=== PATIENT | male | born 1955 | race Caucasian/White ===

== ENCOUNTER 2016-12-24 12:50 | Observation (INO) ==
--- NOTE | 2016-12-24 13:26 | Emergency Department Note ---
IKb Brittany, am scribing for, and in the presence of, Jonathan Capps MD 13:20. Jefry Mukherjee Phillip K, MD, personally performed the services described in this documentation, ascribed by Nan Quiles in my presence, and it is both accurate and complete 326 . Arrival - Arrival Chief Complaint: Syncope Stated Complaint: Chest pain-transfer ED Nursing Triage Note: Brought in by EMS c/o syncopal episode x's 2-onset yesterday. Patient was transferred from [facility] for elevated troponin of 0.689. Denies CP or SOB. Mode of Arrival: Stretcher Limitations: No Limitations Source: Patient, Family Time Seen by Provider: 12/24/16 13:10 - History of Present Illness HPI Narrative: This is a 61 y/o white male,who presents to the ED by EMS with S/P syncopal episode which happened earlier today. He was transferred from [facility]'s ED. He states he was at home. Pt's states pt was sitting on the toilet when she heard him fall. Pt states he felt lightheaded. He did not have any CP, SOB, or nausea or vomiting. He states he then had one episode today. He reports he was outside when he bent forward to pick something up and started to get lightheaded again. He, again, denies any CP, SOB, or nausea or vomiting. Pt also complains of "indigestion" as well. Pt has no other complaints/pain in the ED at this time. Pt denies a PMHx. Pt denies a surgical Hx. Pt denies a family medical Hx. Pt denies a social Hx. Pt's Troponin level was 0.689 at [facility]. Patient's CPK was normal at [facility] but his MB was 9. Onset (ago): day(s) (Started yesterday) Consistency: constant Severity: moderate Allergies/Adverse Reactions: Allergies Allergy/AdvReac Type Severity Reaction Status Date / Time No Known Allergies Allergy Verified 12/24/16 12:55 Home Medications: Home Medications Medication Instructions Recorded Confirmed Type No Known Home Medications [No 12/24/16 12/24/16 History Known Home Medications] Review of System - Review of System 12 point system: reviewed and no additional remarkable complaints except as stated - Review of System Cardiovascular: Present: syncope (x 2). Absent: chest pain, dyspnea on exertion Gastrointestinal: Present: other ("Indigestion"). Absent: nausea, vomiting Neurological: Present: other (Lightheaded) Medical,Surgical,& Family Hx - Social History Smoking Status: Never smoker Frequency of Alcohol Use: None Type of Drug Use: None Exam Vital Signs: Vital Signs Temperature 98.0 F 12/24/16 13:56 Pulse Rate 61 12/24/16 13:56 Respiratory Rate 18 12/24/16 13:56 Blood Pressure 169/99 12/24/16 13:56 O2 Sat by Pulse Oximetry 100 12/24/16 13:20 - General General appearance: alert, in no apparent distress - Head Head exam: Present: atraumatic, normocephalic, normal inspection - Eye Eye exam: Present: normal appearance, PERRL, EOMI. Absent: nystagmus - ENT ENT exam: Present: normal exam, normal oropharynx, mucous membranes moist - Neck Neck exam: Present: normal inspection, full ROM, trachea midline. Absent: tenderness, meningismus, lymphadenopathy, thyromegaly - Chest Chest inspection: Present: normal inspection, symmetric chest wall rise. Absent : tenderness, rash, abscess - Respiratory Respiratory exam: Present: normal lung sounds bilaterally. Absent: prolonged expiratory phase, rales, respiratory distress, rhonchi, stridor, wheezes - Cardiovascular Cardiovascular exam: Present: regular rate, normal rhythm, normal heart sounds. Absent: murmur, rubs, gallop, clicks - Abdominal Exam Abdominal exam: Present: soft, normal bowel sounds. Absent: distention, tenderness, guarding, rebound, rigidity - Extremities Exam Extremities exam: Present: normal inspection, full ROM, normal capillary refill. Absent: tenderness, pedal edema, joint swelling, calf tenderness - Back Exam Back exam: Present: normal inspection, full ROM. Absent: tenderness, muscle spasm, rashes - Neurological Exam Neurological exam: Present: alert, oriented X3, CN II-XII intact. Absent: motor sensory deficit - Psychiatric Psychiatric exam: Present: normal affect, normal mood. Absent: depressed, agitated, anxious - Skin Skin exam: Present: warm, dry, intact, normal color. Absent: rash, cyanosis, diaphoresis, erythema, pallor, mottled Course Course Narrative: Patient discussed with Dr. pyle who will admit for further evaluation. Results - Labs Lab Results: I have reviewed the patients labs Labs: Laboratory Tests 12/24/16 13:17 Troponin I 0.517 H Disposition Clinical Impression: Syncope, Elevated troponin Case discussed with: patient, patient's family Disposition: Still a Patient Condition: Guarded
[2016-12-24] MEDS ORDERED: MAGNESIUM SULF RIDER 2 GM in PREMIX 1 EACH IV PRN (13:29)
[2016-12-24] MEDS ORDERED: MAGNESIUM SULF RIDER 4 GM in PREMIX 1 EACH IV PRN (13:29)
[2016-12-24] MEDS ORDERED: ENOXAPARIN 120 MG/0.8 ML SYRINGE SUBCUT STA (13:44)
[2016-12-24] MEDS ORDERED: ASPIRIN 325 MG TABLET PO STA (13:45)
[2016-12-24] MEDS ORDERED: ENOXAPARIN 120 MG/0.8 ML SYRINGE SUBCUT ONE (13:47)
[2016-12-24] MEDS ORDERED: ASPIRIN 325 MG TABLET ONE (13:47)
--- NOTE | 2016-12-24 13:50 | XRay Report ---
Portable chest Date: 12/24/2016 Clinical history: Shortness of breath Comparison: 12/24/2016 Technique: Portable AP sitting chest Findings: The heart is borderline in size with left ventricular prominence and uncoiling of the aorta. Minimal atelectasis at the lung bases. Unremarkable mediastinum with degenerative changes. Impression: Left ventricular prominence and uncoiling of the aorta which can be seen with hypertensive cardiovascular disease. Minimal atelectasis at the lung bases. PROCEDURE INTERPRETED AT [facility] DEPARTMENT OF RADIOLOGY Final Report Signed by: Dr. Ruby Colbert
--- NOTE | 2016-12-24 14:11 | Cardiology History & Physical ---
Assessment and Plan - Time spent with patient Time spent with patient: Greater than 30 minutes (1) Hyperlipidemia Status: Chronic Assessment and plan: SEE PLAN OF CARE LISTED BELOW Current Visit: Yes (2) Carotid bruit Status: Chronic Assessment and plan: SEE PLAN OF CARE LISTED BELOW Current Visit: Yes Qualifiers: Laterality: right Qualified Code(s): R09.89 - Other specified symptoms and signs involving the circulatory and respiratory systems (3) Sleep disorder Status: Chronic Assessment and plan: SEE PLAN OF CARE LISTED BELOW Current Visit: Yes (4) Elevated troponin Status: Acute Assessment and plan: SEE PLAN OF CARE LISTED BELOW Current Visit: Yes (5) Syncope Status: Acute Assessment and plan: SEE PLAN OF CARE LISTED BELOW Current Visit: Yes History of Present Illness Chief complaint: syncope, elevated trop History of present illness: Patient is being seen in the emergency department Mr. Aguero is a 61 year old male never followed by cardiology before. His factors include: Dyslipidemia, obesity, history of remote tobaccoism. Patient presented to the emergency department at [facility] today after going to [facility] and being told that there was no physician available for 5 days. He sought medical attention after expressing a second episode of syncope. Yesterday morning, while sitting on the toilet, he states he was trying to have a bowel movement yet he was not bearing down. He awoke on the floor next to his he was trying to wake him. She witnessed him on the floor. She states he never quit breathing, he had a good pulse and he did not have any seizure type activity. She estimates he was at approximately 2 minutes. When he was awakened, he was somewhat tired, to canal and then went to work and worked his usual routine throughout the day. His morning, as he was getting out of bed, he stood up and became dizzy and leaned up against his bedroom door. He states that when he awakened he was sitting on the floor. Again, he denies having any type of seizure activity or symptoms associated with seizures. He denies having chest pain, heaviness or tightness. He denies shortness of breath. He is usually very active taking several stairs throughout the day. When he went to the emergency department, he was found to have a troponin of 0.689 with an MB of 9. He underwent CT of his head which was found to be negative. His EKG was unremarkable. He was then instructed to be evaluated at [facility] where he is being seen at this time. I have discussed this patient's case with Dr. Jones. Our plan will include monitoring his cardiac biomarkers. After we receive the second result from the cardiac biomarkers, should they remain elevated or worsen, we will proceed with cardiac catheterization this afternoon. I will order an echocardiogram. Patient does have a right carotid bruit and I will order a carotid ultrasound. Certainly, his syncope could be related to an arrhythmia we will monitor his telemetry closely. At discharge, may consider event monitor. Fasting lipid profile in the morning. The patient did undergo colonoscopy approximately one week ago. His states that she feels as if her has not replenished his fluids as he should. Patient agrees that this is a possibility as well. I'll ask for orthostatic vital signs. I'll go ahead and start hydrating him with IV fluids. CT head reveals no significant abnormality. Labs included the following: Hemoglobin 15.1, hematocrit 44.5. Platelet count 238. Troponin 0.689, CK-MB 9.0, cpk - 216. Myoglobin 100. INR 0.96, magnesium 2.0. BMP has been ordered. ASSESSMENT/PLAN: 1. SYNCOPE - we will start searching for cardiac contributions. Telemetry, consider event monitor. CIEs pending. May be volume depleted. 2. ELEVATED TROPONIN - await second set of enzymes. If elevated, will proceed with heart catheterization this afternoon. NPO 3. HYPERLIPIDEMIA - FLP in the morning. 4. CAROTID BRUIT - right sided bruit. Carotid US 5. SUSPECT SLEEP DISORDER - patient considering referral for sleep study Home Medications Medication Instructions Recorded Confirmed Type No Known Home Medications [No 12/24/16 12/24/16 History Known Home Medications] Allergies Allergy/AdvReac Type Severity Reaction Status Date / Time No Known Allergies Allergy Verified 12/24/16 12:55 Review of systems: REVIEW OF SYSTEMS: - Constitutional Constitutional: Syncope 2 Absent: anorexia, fatigue, night sweats - EENT Eyes: Absent: blurry vision, loss of vision, diplopia Ears: Absent: decreased hearing, ear pain, ear discharge - Cardiovascular Cardiovascular: Denies chest pain with exertion, dyspnea on exertion, edema, palpitations. Absent: chest pain with deep breath, claudication, - Respiratory Respiratory: Denies WING, cough. Absent: wheezing, hemoptysis, change in phlegm color - Gastrointestinal Gastrointestinal: Denies constipation. Absent: abdominal pain, hematemesis, hematochezia, melena, change in bowel habits, nausea - Genitourinary Genitourinary: Absent: difficulty urinating, dysuria, urinary hesitancy, flank pain - Musculoskeletal Musculoskeletal: Present: back pain Absent: joint swelling, muscle cramps, muscle weakness - Neurological Neurological: Present: normal gait without frequent falls. Absent: dizziness, hemiparesis - Psychiatric Psychiatric: Absent: anxiety, depression, difficulty concentrating - Endocrine Endocrine: Absent: cold intolerance, heat intolerance, polyuria, polyphagia, polydipsia - Hematologic/Lymphatic Hematologic/Lymphatic: Present: easy bruising. Absent: easy bleeding, easy bruisability -Integumentary Integumentary: Absent: lesions, rashes, skin breakdown Medical,Surgical,& Family Hx - Medical History Cardio: No history of: CAD, Hypertension, GA Endocrine: History of: Dyslipidemia No history of: Diabetes Mellitus (IDDM) Respiratory: No history of: COPD Other: No history of: Cancer - Social History Smoking Status: Former smoker Have you smoked in the last 12 months: No Frequency of Alcohol Use: None Type of Drug Use: None Marital Status: Lives With:: Spouse Functional capacity: independent ambulation Cardiology Physical Exam - Constitutional Vitals: Vital Signs Temp Pulse Resp BP Pulse Ox 98.0 F 61 18 169/99 98 12/24/16 13:56 12/24/16 13:56 12/24/16 13:56 12/24/16 13:56 12/24/16 12:51 Intake and Output 12/23/16 12/24/16 12/24/16 23:59 07:59 15:59 Other: Weight 117.934 kg Patient Weight 12/24/16 23:59 Weight 117.934 kg Exam: General: Appears well with no apparent distress. Pleasant and cooperative. Appears comfortable. HEENT: PERRL, normocephalic, atraumatic. Mucous membranes moist. No jaundice noted. Conjunctiva moist and clear, sclerae anicteric Neck: No JVD/HJR, no thyromegaly or lymphadenopathy noted. Right carotid bruit noted. Cardiac: Regular rate and rhythm. No murmur rub or gallop. Lungs: Clear to auscultation without accessory muscle use to assist the respiratory pattern. Not requiring oxygen Abdomen: Soft, bowel sounds normoactive. Nontender and nondistended. No abdominal bruit or thrill noted. No masses noted. Musculoskeletal: No fluid collection. Decreased range of motion is noted. Extremities: No clubbing, cyanosis noted. No edema noted. Upper extremity pulses 2+. Lower extremity pulses 2+. Capillary refill less than 3 seconds. Skin: No unusual lesions or rashes. No skin breakdown appreciated. Neuro: Awake, alert and oriented 3. Moves all extremities well without hemiparesis or paralysis. No essential tremor is appreciated. Result/EKG - Labs Lab Results: I have reviewed the past 24 hour labs Labs: Laboratory Results - last 24 hr 12/24/16 12/24/16 13:17 13:17 Total Creatine Kinase 173 Troponin I 0.517 H - Diagnostic Findings Procedure: Chest x-ray: report reviewed by me, CT: pending - EKG EKG results: interpreted by me EKG shows: sinus rhythm
[2016-12-24 15:05] LABS: Albumin 4.1 G/DL (3.4-5.0); Bilirubin,Direct 0.2 MG/DL (0.0-0.20); Bilirubin,Indirect 0.7 MG/DL (0.0-1.0); Bilirubin,Total 0.9 MG/DL (0.2-1.0); Calcium 9.2 MG/DL (8.5-10.1); Free T4 (Free Thyroxine) 0.95 NG/DL (0.76-1.46); Magnesium 2.2 MG/DL (1.8-2.4); Osmolality,Calculated 284.1 MOS/KG (273-304); Potassium 4.5 MMOL/L (3.5-5.1); Thyroid Stimulating Hormone 1.82 uIU/ml (0.358-3.74); Total Protein 7.1 G/DL (6.4-8.3)
--- NOTE | 2016-12-24 15:28 | Ultrasound Report ---
Exam: US carotid duplex BI Date: 12/24/2016 2:11 PM Indication: Right carotid bruit, syncope Technique: Duplex scan of the bilateral carotid arteries using B-mode/grayscale imaging and Doppler spectral analysis and color flow. Findings: Right Flow velocities centimeters per second Common carotid artery: 56 Proximal ICA: 56 Distal ICA: 99 External carotid artery: 152 Vertebral artery: 51 with antegrade flow ICA/CCA ratio: 1.8 Measurements in millimeters Distal ICA: 4.7 Left: Flow velocities centimeters per second Common carotid artery: 85 Proximal ICA: 131 Distal ICA: 149 External carotid artery: 173 Vertebral artery: 64 with antegrade flow ICA/CCA ratio: 1.8 Measurements in millimeters Distal ICA: 5 Minimal atherosclerotic plaque which is primarily calcified is noted at the proximal internal carotid arteries bilaterally. There is also mild calcific plaque suggested at the proximal left external carotid artery. Mild stenosis in the range of 16-49% is suggested at both proximal internal carotid arteries. Mild-moderate luminal stenosis is suggested at the bilateral proximal external carotid arteries. Increased flow velocities at the left common carotid artery versus right common carotid artery may represent a degree of mild stenosis within the proximal right common carotid artery. Color flow is present in all visualized vessels with Doppler analysis. Impression: Mild atherosclerotic disease bilaterally with suggestion of mild stenosis at the proximal internal carotid arteries in the range of 16-49%. Today studies were performed utilizing indirect NASCET criteria The ultrasound images were stored and captured PROCEDURE INTERPRETED AT [facility] DEPARTMENT OF RADIOLOGY Final Report Signed by: Fidel Amaya
[2016-12-24 15:50] VITALS: BP 136/73
[2016-12-24] MEDS ORDERED: LORazepam 2 MG/1 ML VIAL ONE (16:22)
[2016-12-24] MEDS ORDERED: SODIUM CHLORIDE 0.45% 1,000 ML IV SCH (16:30)
[2016-12-24] MEDS ORDERED: DOBUTamine 500 MG/250 ML PREMIX IV ONE (16:32)
[2016-12-24] MEDS ORDERED: AMIODARONE 150 MG/3 ML VIAL ONE ×2 (16:56→16:57)
[2016-12-24] MEDS ORDERED: ETOMIDATE 20 MG/10 ML VIAL IV ONE (16:59)
[2016-12-24] MEDS ORDERED: SUCCINYLCHOLINE 200 MG/10 ML VIAL ONE (16:59)
[2016-12-24] MEDS ORDERED: AMIODARONE 450 MG/9 ML VIAL IV ONE (17:00)
--- NOTE | 2016-12-24 17:13 | EKG Report ---
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
[2016-12-24] MEDS ORDERED: HEPARIN/NACL 0.9% 2 UNITS/ML 500 ML IV ONE (17:24)
[2016-12-24 17:25] LABS: Basophils % 0.6 % (0.0-0.8); Eosinophils # 0.1 10*3/uL (0.0-0.87); Eosinophils % 1.1 % (0.00-10.9); Hematocrit 42.2 VOL% (42.0-52.0); Immature Granulocytes % 5.7 %; Immature Granulocytes Absolute 0.36 #; Lymphocytes # 4.6 10*3/uL (1.4-4.0); Lymphocytes % 72.4 % (21.2-54.2); Mean Corpuscular HGB Conc 30.8 GM/DL (32-36); Mean Corpuscular Hemoglobin 28 PG (27-34); Mean Corpuscular Volume 91.1 FL (87-102); Mean Platelet Volume 11.7 FL (9.6-12.0); Monocytes # 0.2 10*3/uL (0.11-0.8); Monocytes % 2.5 % (1.7-12.7); Neutrophils # 1.1 10*3/uL (1.4-7.4); Neutrophils % 17.7 % (38.7-73.9); Platelet Count 150 T/CUMM (130-400); Red Blood Count 4.63 MC/CUMM (3.8-5.5); Red Cell Distribution Width 13.2 % (9.3-17.3); White Blood Count 6.3 T/CUMM (4-12)
[2016-12-24] MEDS ORDERED: DOBUTamine 500 MG/250 ML PREMIX IV SCH (17:30)
[2016-12-24] MEDS ORDERED: AMIODARONE INJ 450 MG in DEXTROSE 5% 241 ML IV SCH ×2 (17:30→23:30)
[2016-12-24] MEDS ORDERED: DOPamine 800 MG/250 ML PREMIX IV SCH (17:30)
[2016-12-24 17:37] LABS: INR 1.2; PT Patient Result 12.7 SECS; Partial Thromboplastin Time 46.8 SECS (0-40)
[2016-12-24] MEDS ORDERED: DEXTROSE 50% 25 GM/50 ML VIAL IV ONE (17:40)
--- NOTE | 2016-12-24 17:40 | XRay Report ---
Exam: XR chest 1V portable Indication: ET tube placement, respiratory failure Comparison study: 12/24/2016 at 1:27 PM Findings: Endotracheal tube tip terminates 3 cm from the jarvis. There has been development of diffuse opacity throughout both lungs suggestive of pulmonary edema or rapidly developing infectious/inflammatory infiltrates. There is no pneumothorax. Cardiac silhouette in a sterile contours appear within normal limits. There is no acute osseous abnormality. Impression: Endotracheal tube tip in position. Development of diffuse opacities throughout both lungs may represent pulmonary edema changes or infectious/inflammatory infiltrates. PROCEDURE INTERPRETED AT [facility] DEPARTMENT OF RADIOLOGY Final Report Signed by: Fidel Amaya
[2016-12-24 17:47] LABS: Albumin 2.4 G/DL (3.4-5.0); Bilirubin,Total 0.5 MG/DL (0.2-1.0); Calcium 7.4 MG/DL (8.5-10.1); Osmolality,Calculated 298.7 MOS/KG (273-304); Total Protein 4.7 G/DL (6.4-8.3)
[2016-12-24 17:51] LABS: Troponin I Only 0.611 NG/ML (0.00-0.045)
--- NOTE | 2016-12-24 18:12 | Event Note ---
PROCEDURE NOTE: Right femoral central line placement. Indication: Emergent CV access The right groin was prepped and draped per sterile technique and anesthetized with lidocaine. The femoral artery pulse was palpated, and the finder needle was advanced into the femoral vein with dark nonpulsatile blood return. The guidewire was advanced through the finder needle into the femoral vein. A small skin incision was made, the needle was removed, and the dilator was applied over the wire. The dilator was removed and the arrow triple-lumen catheter was advanced easily over the wire. Each port aspirated and flushed with normal saline. The central line was sutured into place. Complications: none EBL: minimal CODE BLUE note: I was present in the patient's ICU room for the patient's second occurrence of loss of pulse. His first CODE BLUE occurred on telemetry. ACLS was started. He received multiple rounds of epinephrine, sodium bicarbonate, D50, calcium gluconate. Despite our maximum efforts he never regained a pulse and was pronounced at 17:[address] Jones, the attending physician was notified and has spoken to the family.
[2016-12-24 18:36] LABS: Atypical Lymphocytes 1+; Band Neutrophils 2 % (0-10); Lymphocytes 69 % (20-55); Ovalocytes Slight; Platelet Estimate Adequate; Poikilocytosis Slight; Segmented Neutrophils 26 % (50-85); Smudge Cells 1+; Total Cells Counted 100
--- NOTE | 2016-12-24 23:27 | Event Note ---
. Carotid bruits were negative. Will decide the next based on how she responds therap
--- NOTE | 2016-12-24 23:31 | Discharge Summary ---
Hospital Course - Hospital Course Hospital Course: + The patient was admitted with multiple syncopal episodes. He coded. Sees the ACL and minimal /He underwent ACLS for at least 50 minutes. He coded moved to ICU. He was intubated before being done. prognis if ex;ater The patient coded suddenly. [facility] ACLS protocol. His coded about 40-50 minutes. He had PDA. He was intubated but the drug felt. His mood GN. He was given some support, however 67 did . Branch Service Representative: Dr. Jones 70-year-old woman she has a history of paroxysmal A. fibrulation his been difficult to control. She is now on amiodarone. She has lately been having chest pain. It starts her lower chest/epigastrium and radiates to her upper chest. Nothing brings it on. Nothing makes it better. It is a pressure. It is associated with some shortness breath but no nausea or diaphoresis. It can last several minutes. Discharge Plan - Discharge Data Disposition: Disch To Home/Self Care Condition at Discharge: Stable Discharge Diet: heart healthy Activity: resume usual activities as tolerated Hygiene: no restrictions Weight Bearing at Discharge: full weight bearing - Discharge Medications No Action No Known Home Medications [No Known Home Medications] - Follow Up or Referral - Forms/Instructions Exam - Constitutional Vitals: Period Temp Pulse Resp BP Sys/Fink Pulse Ox Last 24 Hr 98.0 F-98.5 F 60-70 18-22 136-169/73-99 96-98 Exam: lorena makes it better. It is a pressure. It is associated with some shortness breath but no nausea or diaphoresis. It can last several minutes. No orthopnea, PND, edema, palpitations, syncope, cough wheezing or phlegm. No bleeding the bowels, urine, or coughing up blood. No plans for surgery in the next year. No contraindication to anticoagulation for a year. 12/23/16--plan/recommendation: The patient is having less muscle ache or achiness. The diarrhea slightly better. Blood pressure is good. Continue therapy. Possibly swing bed tomorrow 12/24/16--plan/recommendation: The patient is having less muscle ache or achiness. The diarrhea slightly better. Blood pressure is good. Continue therapy. swing bed today The patient arrived. He was [facility]. He coded. It is about 40 minutes. He stabilized his mid ICU. He coded again and then . with 2 syncopal episodes yesterday and 2 today. He is admitted. His troponins were flat. It is admitted. Carotid bruits were negative. Will decide the next based on how she responds therap Discharge Results Procedures and tests throughout hospitalization: Pending Orders 12/24/16 17:25 MRSA Surveillence, Inf Control Routine Labs on day of discharge: Labs from last 24 hours 12/24/16 12/24/16 12/24/16 17:12 17:12 17:12 WBC 6.3 RBC 4.63 Hgb 13.0 L Hct 42.2 MCV 91.1 MCH 28 MCHC 30.8 L RDW 13.2 Plt Count 150 MPV 11.7 Neut % (Auto) 17.7 L Lymph % (Auto) 72.4 H [place] % (Auto) 2.5 Eos % (Auto) 1.1 Baso % (Auto) 0.6 Neut # (Auto) 1.1 L Lymph # (Auto) 4.6 H [place] # (Auto) 0.2 Eos # (Auto) 0.1 Baso # (Auto) 0.0 Total Counted 100 Immature Gran % 5.7 Nucleated RBC % 0.0 Immature Gran # 0.36 Segmented Neutrophils 26 L Band Neutrophils 2 Lymphocytes 69 H Monocytes 3 Nucleated RBCs # 0.00 Atypical Lymphocytes 1+ Smudge Cells 1+ Platelet Estimate Adequate Poikilocytosis Slight Ovalocytes Slight INR 1.2 PT Patient/Control Mix 12.7 Circ Anticoag PTT 46.8 H Sodium Potassium Chloride Carbon Dioxide Anion Gap BUN Creatinine GFR Calculation BUN/Creatinine Ratio Glucose POC Glucose Calculated Osmolality Lactic Acid 10.0 H Calcium Total Bilirubin AST ALT Alkaline Phosphatase Total Creatine Kinase CK-MB (CK-2) CK and CKMB Interp Troponin I Total Protein Albumin Globulin Albumin/Globulin Ratio 12/24/16 12/24/16 17:12 16:12 WBC RBC Hgb Hct MCV MCH MCHC RDW Plt Count MPV Neut % (Auto) Lymph % (Auto) [place] % (Auto) Eos % (Auto) Baso % (Auto) Neut # (Auto) Lymph # (Auto) [place] # (Auto) Eos # (Auto) Baso # (Auto) Total Counted Immature Gran % Nucleated RBC % Immature Gran # Segmented Neutrophils Band Neutrophils Lymphocytes Monocytes Nucleated RBCs # Atypical Lymphocytes Smudge Cells Platelet Estimate Poikilocytosis Ovalocytes INR PT Patient/Control Mix Circ Anticoag PTT Sodium 145 Potassium 4.0 Chloride 109 H Carbon Dioxide 16 L Anion Gap 24.0 H BUN 18 Creatinine 1.30 GFR Calculation 79 BUN/Creatinine Ratio 13.00 Glucose 256 H POC Glucose 84 Calculated Osmolality 298.7 Lactic Acid Calcium 7.4 L Total Bilirubin 0.50 AST 92 H ALT 144 H Alkaline Phosphatase 39 L Total Creatine Kinase 165 CK-MB (CK-2) 6.6 H CK and CKMB Interp 4.0 Troponin I 0.611 H Total Protein 4.7 L Albumin 2.4 L Globulin 2.3 Albumin/Globulin Ratio 1.0 L DS: Provider Date of admission: 12/24/16 13:28 Primary care physician: . No PCP Attending physician on admission: Devon Jones MD Consults: 12/24/16 15:55 Consult to Pharmacy [CONS] Routine Reason for Pharmacy Consult: Adjust Meds Renal Funct Discharging clinician: Devon Jones MD
--- NOTE | 2016-12-24 23:48 | Event Note ---
CODE BLUE note Patient coded. He had some seizure-like activity. Initially was given some atropine and then some epinephrine. He had what appeared to be post ictal response after he had a blood pressure. Then he had another event, had seizure -like activity. At this point he went into PEA. We tried multiple drugs, see the list is documented. About 40 minutes into the code he came back with a blood pressure and pulse but was unresponsive , he was intubated. Moved to the ICU. Prognosis is guarded.
--- NOTE | 2016-12-25 07:23 | EKG Report ---
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
--- NOTE | 2016-12-27 12:12 | Discharge Summary ---
Hospital Course - Hospital Course Hospital Course: The patient was admitted after having had 2 or 3 episodes of syncope today prior to the admission and 2 episodes the day of admission. It was not clear what was causing syncope from the initial labs, history and physical, EKG, and x -rays. He denies any chest pain or shortness of breath. There is no obvious cause for syncope. Carotid ultrasounds were negative. He was moved upstairs to telemetry. on Telemetry he had an episode/spell. He had a syncopal episode and was shaking with a pulse in the 40s-50s. It would indicate there is not bradycardia causing the event. There is no other arrhythmia. I witnessed some of these events and they appear to be a seizure. He was shaking and appeared postictal after the events. However he was somewhat hypoxemic. He coded more and he had evidence of PEA. We thought of LV systolic dysfunction, there was not evidence of pneumothorax, PE was considered, he is not hypovolemic. There are no obvious electrolyte abnormalities. We continued CPR. He required much epinephrine and dobutamine. After about 40 minutes of coding he came back and had a pulse and blood pressure but was unresponsive. He had been intubated. He moved to the ICU. He was begun on therapeutic hypothermia and Dr. Coronel was doing some evaluation, he had been consulted. In the ICU he was had a blood pressure and pulse for about 20 or 30 minutes then he did the same event again. He was coded again for [address] Coronel. The code was called because of lack of response to cardiovascular resuscitative efforts. Condolences were given the family, his and what appeared to be his daughter. I discussed with the family what I thought may have caused the event. The body was released to home. It is my suspicion that he had a seizure that resulted in cardiovascular downturn and eventually caused his . However, it could have been he had a large pulmonary embolus. Less likely it could have been ischemic event without an arrhythmia, such as a left main ischemic event. - Time spent with patient Time with patient DS: Greater than 30 minutes Diagnosis - Discharge Diagnosis (1) Syncope Status: Acute (2) Seizure Status: Acute (3) Cardiopulmonary arrest Status: Acute (4) Overweight Status: Acute (5) Elevated troponin Status: Acute (6) Hyperlipidemia Status: Chronic (7) Sleep disorder Status: Chronic Discharge Plan - Discharge Data Disposition: Condition at Discharge: Discharge Diet: other Activity: other Hygiene: other Weight Bearing at Discharge: other Driving: other - Discharge Medications No Action No Known Home Medications [No Known Home Medications] - Follow Up or Referral - Forms/Instructions Exam - Constitutional Exam: HEENT: Pupils equal, reactive to light and accommodation Neck: NoJVD or bruit Lungs clear to auscultation Heart: Regular rhythm rate with normal S1 and S2. Apical S4 Abdomen: No hepatosplenomegaly Spine/extremities: No clubbing, cyanosis, or edema Neuro: Nonfocal Psych: No depression or anxiety DS: Provider Date of admission: 12/24/16 13:28 Primary care physician: . No PCP Attending physician on admission: Devon Jones MD Consults: 12/24/16 15:55 Consult to Pharmacy [CONS] Routine Reason for Pharmacy Consult: Adjust Meds Renal Funct Discharging clinician: Devon Jones MD
== END 2016-12-24 17:45 | disposition expired ==
LOC: N.ED 12:50 → N.EDINP 12:50 → N.TELES 15:53 → N.ICU 17:11
PROVIDERS: ADMIT Internal Medicine Cardiovascular Disease; ATTEND Internal Medicine Cardiovascular Disease